=== PATIENT | female | born 1965 | race American Indian/Alaskan Native ===

== ENCOUNTER 2017-05-19 17:09 | Emergency (ER) | payer MEDICAID ==
[2017-05-19 18:02] VITALS: BMI 46.4
[2017-05-19 18:03] VITALS: TEMP 98.5
--- NOTE | 2017-05-19 18:22 | ED PDOC ---
Arrival/HPI - General Chief Complaint: Trauma Time Seen by Provider: 05/19/17 17:39 Historian: Patient - History of Present Illness Narrative History of Present Illness (Text): 05/19/17 18:16 A 51 year old female whose past medical history includes a stroke, presents to the emergency department with right sided pain due to a mechanical fall [place] the light rail. The patient states that she fell as she was holding onto the rail and hit her head on the right. She notes that after her stroke she has had baseline weakness to her left side. The patient denies loss of consciousness, dizziness, chest pain, shortness of breath, vomiting nausea, diarrhea, or any other complaint. Time/Duration: Prior to Arrival Symptom Course: Unchanged Activities at Onset: Rest, Light Context: Other (Ligth rail) Past Medical History - Provider Review Nursing Documentation Reviewed: Yes - Pulmonary Hx Respiratory Disorders: No - Neurological HX Cerebrovascular Accident: Yes (2009) Other/Comment: right side weakness - HEENT Hx HEENT Disorder: No - Renal Hx Renal Disorder: No - Endocrine/Metabolic Hx Endocrine Disorders: No - Hematological/Oncological Hx Blood Disorders: No - Integumentary Hx Dermatological Disorder: No - Musculoskeletal/Rheumatological Hx Musculoskeletal Disorders: No - Gastrointestinal Hx Gastrointestinal Disorders: No - Genitourinary/Gynecological Hx Genitourinary Disorders: No - Psychiatric Hx Psychophysiologic Disorder: No Hx Substance Use: No Family/Social History - Physician Review Nursing Documentation Reviewed: Yes Family/Social History: No Known Family HX Smoking Status: Never Smoked Hx Alcohol Use: No Hx Substance Use: No Allergies/Home Meds Allergies/Adverse Reactions: Allergies No Known Allergies Allergy (Verified 05/19/17 18:02) Home Medications: Home Meds Medication Instructions Recorded Confirmed Oxybutynin Chloride [Ditropan Xl] 5 mg PO DAILY 05/19/17 05/19/17 Warfarin Sodium [Jantoven] 1 mg PO DAILY 05/19/17 05/19/17 Review of Systems - Physician Review All systems were reviewed & negative as marked: Yes - Review of Systems Constitutional: absent: Fevers, Night Sweats Respiratory: absent: SOB Cardiovascular: absent: Chest Pain Gastrointestinal: absent: Abdominal Pain, Diarrhea, Nausea, Vomiting Neurological: Other (Hit right rise of head in mechanical fall). absent: Dizziness Physical Exam Vital Signs Reviewed: Yes Vital Signs Temp Pulse Resp BP Pulse Ox 05/19/17 21:54 76 16 128/78 100 05/19/17 18:03 98.5 F 75 18 136/76 99 05/19/17 18:02 98.5 F 75 18 136/76 99 Temperature: Afebrile Blood Pressure: Normal Pulse: Regular Respiratory Rate: Normal Appearance: Positive for: Well-Appearing, Non-Toxic, Comfortable Pain Distress: None Mental Status: Positive for: Alert and Oriented X 3 - Systems Exam Head: No: Atraumatic Pupils: Present: PERRL Extroacular Muscles: Present: EOMI Conjunctiva: Present: Normal Mouth: Present: Moist Mucous Membranes Neck: Present: Normal Range of Motion Respiratory/Chest: Present: Clear to Auscultation, Good Air Exchange. No: Respiratory Distress, Accessory Muscle Use Cardiovascular: Present: Regular Rate and Rhythm, Normal S1, S2. No: Murmurs Abdomen: Present: Normal Bowel Sounds. No: Tenderness, Distention, Peritoneal Signs Back: Present: Normal Inspection. No: Midline Tenderness (no cervical, thoracic , midline tenderness) Upper Extremity: Present: Swelling (right elbow mild swelling) Lower Extremity: Present: Normal Inspection, Swelling (right hip and knee mild swelling). No: Edema Neurological: Present: GCS=15, CN II-XII Intact, Speech Normal Skin: Present: Warm, Dry, Normal Color. 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 ct added to r/o tibial plataeu fx. pt later refuses to wait for ct imaging, stating "her ride is here" and she needs to leave immediately. knee immoblizer applied applied. pt signs ama - Lab Interpretations Lab Results: 05/19/17 18:22 05/19/17 18:22 Lab Results 05/19/17 18:22: Beta HCG, Quant < 2.39 05/19/17 18:22: Sodium 140, Potassium 3.3 L, Chloride 97 L, Carbon Dioxide 34 H , Anion Gap 12, BUN 14, Creatinine 0.9, Est GFR ( Amer) > 60, Est GFR ( Non-Af Amer) > 60, Random Glucose 103, Calcium 9.0, Total Bilirubin 0.5, AST 31 , ALT 37, Alkaline Phosphatase 87, Total Protein 7.0, Albumin 4.1, Globulin 3.0 , Albumin/Globulin Ratio 1.4 05/19/17 18:22: PT 16.4 H, INR 1.52 H, APTT 31.5 H 05/19/17 18:22: WBC 5.2, RBC 4.36, Hgb 12.7, Hct 39.5, MCV 90.6, MCH 29.1, MCHC 32.2, RDW 13.4, Plt Count 224, MPV 9.5, Gran % 32.6 L, Lymph % (Auto) 57.4 H, Dickenson % (Auto) 7.1 H, Eos % (Auto) 2.5, Baso % (Auto) 0.4, Gran # 1.69, Lymph # 3.0, Dickenson # 0.4, Eos # 0.1, Baso # 0.02 - RAD Interpretation Radiology Orders: 05/19/17 17:56 HEAD W/O CONTRAST [CT] Stat ELBOW RIGHT 3 VIEWS ROUTINE [RAD] Stat FEMUR MIN 2 VIEWS RT [RAD] Stat HIP MIN 4V W/ PELVIS RT [RAD] Stat KNEE RIGHT 2 VIEWS (AP & LAT) [RAD] Stat 05/19/17 18:08 CHEST ONE VIEW [RAD] Stat 05/19/17 18:19 RIBS RIGHT [RAD] Stat - Medication Orders Current Medication Orders: Discontinued Medications Acetaminophen (Tylenol 325mg Tab) 975 mg PO STAT STA Stop: 05/19/17 18:20 Last Admin: 05/19/17 18:41 Dose: Ketorolac Tromethamine (Toradol) 30 mg IVP STAT STA Stop: 05/19/17 21:30 Last Admin: 05/19/17 21:59 Dose: 30 mg Potassium Chloride (K-Dur 20 Meq Er Tab) 40 meq PO STAT STA Stop: 05/19/17 18:58 Last Admin: 05/19/17 19:20 Dose: 40 meq - Scribe Statement The provider has reviewed the documentation as recorded by the Leahibe Shawna Wilson Provider Scribe Attestation: All medical record entries made by the Scribe were at my direction and personally dictated by me. I have reviewed the chart and agree that the record accurately reflects my personal performance of the history, physical exam, medical decision making, and the department course for this patient. I have also personally directed, reviewed, and agree with the discharge instructions and disposition. Disposition/Present on Arrival - Present on Arrival Any Indicators Present on Arrival: No History of DVT/PE: No History of Uncontrolled Diabetes: No Urinary Catheter: No History of Decub. Ulcer: No History Surgical Site Infection Following: None - Disposition Have Diagnosis and Disposition been Completed?: Yes Diagnosis: Knee sprain, Fall, Elbow sprain Disposition: AGAINST MEDICAL ADVICE Disposition Time: 11:00 Condition: UNKNOWN Discharge Instructions (ExitCare): Knee Sprain (ED), Elbow Sprain (ED), Fall Prevention (ED), Hip Pain (ED), Rib Contusion (ED) Additional Instructions: follow up with [facility]ails[facility]. return to er with worsening symptoms or concerns Prescriptions: Naproxen [Naprosyn] 500 mg PO BID PRN #14 tablet PRN Reason: Pain, Mild (1-3) Referrals: Hanna Mckeon MD [Staff Provider] - Follow up with primary Radha Pal MD [Primary Care Provider] - Follow up with primary Forms: Treato (Burmese)
[2017-05-19 18:33] LABS: BASO # 0.02 K/mm3 (0.0-2.0); BASO % 0.4 % (0.0-3.0); EOS # 0.1 (0.0-0.7); EOS % 2.5 % (1.5-5.0); GRAN # 1.69 (1.4-6.5); GRAN % 32.6 % (50.0-68.0); HEMOGLOBIN 12.7 g/dL (12.0-16.0); LYMPH % 57.4 % (22.0-35.0); MEAN CELL VOLUME 90.6 fl (80.0-105.0); MEAN CORPUSCULAR HEMOGLOBIN 29.1 pg (25.0-35.0); MEAN CORPUSCULAR HGB CONC 32.2 g/dl (31.0-37.0); MEAN PLATELET VOLUME 9.5 fl (7.0-11.0); MONO # 0.4 (0.1-0.6); MONO % 7.1 % (1.0-6.0); PLATELET COUNT 224 10^3/uL (120.0-450.0); RBC 4.36 10^6/uL (3.5-6.1); RED CELL DISTRIBUTION WIDTH 13.4 % (11.5-14.5); WHITE BLOOD COUNT 5.2 10^3/ul (4.5-11.0)
[2017-05-19 18:44] LABS: INR 1.52 (0.93-1.08); PARTIAL THROMBOPLASTIN TIME 31.5 Seconds (23.7-30.8); PROTHROMBIN TIME 16.4 Seconds (9.9-11.8)
[2017-05-19 18:48] LABS: ALB/GLOB RATIO 1.4 (1.1-1.8); ALBUMIN 4.1 g/dL (3.0-4.8); ALT/SGPT 37 U/L (7-56); AST/SGOT 31 U/L (15-39); BLOOD UREA NITROGEN 14 mg/dL (7-21); GFR AFRICAN-AMERICAN > 60; GFR NON-AFRICAN AMERICAN > 60
[2017-05-19] MEDS ORDERED: Potassium Chloride 20 mEq ER Tab PO STA (18:57)
--- NOTE | 2017-05-19 21:14 | CT ---
EXAM: CT Head Without Intravenous Contrast CLINICAL HISTORY: 51 years old, female; Pain; Headache; Headache not specified; Additional info: Fall TECHNIQUE: Axial computed tomography images of the head/brain without intravenous contrast. All CT scans at this facility use one or more dose reduction techniques, viz.: automated exposure control; ma/kV adjustment per patient size (including targeted exams where dose is matched to indication; i.e. head); or iterative reconstruction technique. EXAM DATE/TIME: 05/19/2017 5:56 PM COMPARISON: There are no prior studies for comparison. FINDINGS: Brain: Ventricles are normal in size.. There is no midline shift. There is right frontotemporoparietal encephalomalacia. There are no intra-axial or extra-axial mass lesions or areas of hemorrhage. There are no abnormal fluid collections. Murillo-white differentiation is maintained. Ventricles: See above Bones: Cranial vault is intact. Soft tissues: unremarkable Sinuses: There is no acute sinusitis. Ears and mastoids: Middle ears and mastoids are unremarkable Orbits: Orbital contents are unremarkable. IMPRESSION: Old right MCA distribution infarct, no bleed
[2017-05-19 21:54] VITALS: BP 128/78; PULSE 76; RESP 16; O2SAT 100
--- NOTE | 2017-05-20 09:56 | RAD ---
PROCEDURE: Right ribs HISTORY: fall COMPARISON: TECHNIQUE: Three views FINDINGS: There is no evidence of fracture or pneumothorax IMPRESSION: Negative study
--- NOTE | 2017-05-20 09:59 | RAD ---
PROCEDURE: CHEST RADIOGRAPH, 1 VIEW HISTORY: fall COMPARISON: None available. FINDINGS: LUNGS: Clear. PLEURA: No pneumothorax or pleural fluid seen. CARDIOVASCULAR: Normal. OSSEOUS STRUCTURES: No significant abnormalities. VISUALIZED UPPER ABDOMEN: Normal. OTHER FINDINGS: None. IMPRESSION: No active disease.
--- NOTE | 2017-05-20 09:59 | RAD ---
PROCEDURE: Radiographs of the right elbow. HISTORY: fall COMPARISON: No prior. FINDINGS: BONES: Normal. No fracture. JOINTS: Normal. No osteoarthritis. SOFT TISSUES: Normal. JOINT EFFUSION: None. OTHER FINDINGS: None. IMPRESSION: Unremarkable radiographs of the right elbow.
--- NOTE | 2017-05-20 10:01 | RAD ---
PROCEDURE: Right Femur Radiographs. HISTORY: fall COMPARISON: None. TECHNIQUE: AP and Lateral Radiographs of the right femur. FINDINGS: FEMUR: Normal. No fracture. SOFT TISSUES: Normal. OTHER FINDINGS: None. IMPRESSION: Unremarkable radiographs of the right femur.
--- NOTE | 2017-05-20 10:13 | RAD ---
PROCEDURE: Right Hip and pelvis Radiographs. HISTORY: fall COMPARISON: None. FINDINGS: BONES: Normal. No fracture. JOINTS: Normal. SOFT TISSUES: Normal. OTHER FINDINGS: None. IMPRESSION: Negative study
--- NOTE | 2017-05-20 10:14 | RAD ---
PROCEDURE: Right Knee Radiographs. HISTORY: fall COMPARISON: None. FINDINGS: BONES: Normal. No fracture. JOINTS: Normal. No osteoarthritis. JOINT EFFUSION: None. OTHER FINDINGS: None. IMPRESSION: Normal radiographs of the right knee.
== END 2017-05-19 22:30 | disposition left against medical advice (07) ==
LOC: MERGE 17:09 → ED 17:09
DX: S83.91XA Sprain of unspecified site of right knee, initial encounter (principal); S53.401A Unspecified sprain of right elbow, initial encounter; W18.30XA Fall on same level, unspecified, initial encounter; Y92.89 Other specified places as the place of occurrence of the external cause
CPT/HCPCS: 70450; 71010; 71100; 73080; 73503; 73552; 73560; 80053; 84702; 85025; 85610; 85730; 96374; 99285; J1885